=== PATIENT | female | born 1990 ===

== ENCOUNTER → 2020-04-06 11:10 | Outpatient (CLI) | payer OTHER, SELFPAY ==
[2020-04-08 15:08] LABS: QuantiFERON Mitogen Value >10.00 IU/mL (.); QuantiFERON Nil Value 0.22 IU/mL (.); QuantiFERON TB Gold Plus Negative (Negative); QuantiFERON TB1 Ag Value 0.18 IU/mL (.)
== END ==
PROVIDERS: Referring Provider Nurse Practitioner; Visit Provider Nurse Practitioner
DX: Z11.1 Encounter for screening for respiratory tuberculosis (principal)
CPT/HCPCS: 36415; 86480